=== PATIENT | female | born 2000 | race Caucasian/White ===

== ENCOUNTER 2020-09-12 12:23 | Outpatient (CLI) | payer BC ==
[2020-09-12] MEDS ORDERED: Magnevist 469MG/ML 20 ML VIAL ONE (14:06)
--- NOTE | 2020-09-12 15:13 | MRI ---
MRI BRAIN WITH AND WITHOUT IV CONTRAST: Date: 09/12/2020 HISTORY: Vertigo. FINDINGS: No restricted diffusion is seen. No signal abnormalities are noted on the highly sensitive FLAIR imag es. No blood products are noted on the gradient echo sequences. The visualized paranasal sinuses and mastoid air cells are well aerated. No tonsillar herniation is seen. IMPRESSION: Normal exam. POS: AH
--- NOTE | 2020-09-13 08:23 | EEG ---
DATE OF SERVICE: DESCRIPTION OF THE RECORD: The waking background is a medium amplitude 9-10 hertz alpha frequency. The patient remained awake throughout the study. Hyperventilation and photic stimulation were unremarkable. No epileptiform features were seen. IMPRESSION: This is a normal awake EEG. Job ID: [id number]
== END 2020-09-12 12:24 | disposition home or self-care (01) ==
LOC: MRI 12:23
PROVIDERS: ATTEND Psychiatry & Neurology Neurology
DX: R42 Dizziness and giddiness (principal)
CPT/HCPCS: 70553; 95816; A9579